=== PATIENT | male | born 2000 | race Hispanic/Latino ===

== ENCOUNTER 2020-02-27 16:03 | Emergency (ER) | payer MEDICAID, OTHER | END 2020-02-27 16:35 | disposition home or self-care (01) | LOC: EDH 16:03 | DX: S01.01XA Laceration without foreign body of scalp, initial encounter (principal); W17.89XA Other fall from one level to another, initial encounter; Y93.89 Activity, other specified; Y92.89 Other specified places as the place of occurrence of the external cause; Y99.8 Other external cause status ==

== ENCOUNTER 2021-02-23 07:29 | Emergency (ER) | payer BC ==
[~2021-02-23] VITALS: Ht 172.7 cm; Wt 120.7 kg
[2021-02-23 08:02] VITALS: BP 158/98
[2021-02-23 08:21] LABS: BASOPHILS % (AUTO) 1.1 % (0.0-5.0); EOSINOPHILS % (AUTO) 0.9 % (0.0-8.0); HEMATOCRIT 44.6 % (42-54); LYMPHOCYTES % (AUTO) 24.8 % (21.0-51.0); MEAN CORPUSCULAR HEMOGLOBIN 28.9 pg (27.0-33.0); MEAN CORPUSCULAR HGB CONC 33.4 g/dL (32.0-36.0); MEAN CORPUSCULAR VOLUME 86.4 fL (80-100); MONOCYTES % (AUTO) 14.2 % (3.0-13.0); NEUTROPHILS % (AUTO) 58.2 % (40.0-77.0); PLATELET COUNT (AUTO) 260 K/uL (130-400); RED BLOOD CELL COUNT(AUTO) 5.16 MIL/uL (4.50-6.20); RED CELL DISTRIBUTION WIDTH 12.5 % (11.0-15.5); WHITE BLOOD COUNT (AUTO) 6.5 K/uL (4.8-10.8)
[2021-02-23] MEDS ORDERED: SUCRALFATE 1 GM TABLET ONE (08:21)
[2021-02-23] MEDS ORDERED: HYOSCYAMINE SULFATE 0.125 MG TAB.SUBL SL ONE (08:21)
[2021-02-23] MEDS ORDERED: FAMOTIDINE 20MG VIAL IV ONE (08:22)
[2021-02-23] MEDS ORDERED: HYOSCYAMINE SULFATE 0.125 MG TAB.SUBL SL SCH (08:30)
[2021-02-23] MEDS ORDERED: FAMOTIDINE 20MG VIAL IV SCH (08:30)
[2021-02-23] MEDS ORDERED: SUCRALFATE 1 GM TABLET PO SCH (08:30)
[2021-02-23 08:31] LABS: CREATININE 0.9 mg/dL (0.5-1.5); POTASSIUM 3.4 mmol/L (3.5-5.1)
[2021-02-23 08:35] LABS: BILIRUBIN,TOTAL 0.8 mg/dL (0.2-1.0); TOTAL PROTEIN, SERUM 8.1 g/dL (6.0-8.3)
[2021-02-23 08:36] LABS: PROTHROMBIN TIME 10.9 SEC (9.6-11.6)
[2021-02-23 08:37] LABS: PARTIAL THROMBOPLASTIN TIME 27.1 SEC (26.3-35.5)
[2021-02-23 08:37] LABS: APPEARANCE,URINE Clear (CLEAR); BILIRUBIN,URINE Negative (NEGATIVE); COLOR,URINE Yellow (YELLOW); GLUCOSE, URINE (UA) Negative (NEGATIVE); KETONES,URINE 15 mg/dL (NEGATIVE); LEUKOCYTE ESTERASE ,URINE Negative (NEGATIVE); NITRATE,URINE Negative (NEGATIVE); OCCULT BLOOD,URINE Negative (NEGATIVE); PROTEIN,URINE Negative (NEGATIVE)
[2021-02-23] MEDS ORDERED: POTASSIUM BICARB/CIT AC 25 MEQ TABLET.EFF ONE (08:53)
[2021-02-23 08:54] LABS: B-TYPE NATRIURETIC PEPTIDE < 5 pg/mL (0-100)
[2021-02-23] MEDS ORDERED: POTASSIUM BICARB/CIT AC 25 MEQ TABLET.EFF PO SCH (09:00)
[2021-02-23 09:03] LABS: RBC,URINE 0-1 /HPF (0-1)
[2021-02-23 09:04] LABS: BACTERIA,URINE Rare /HPF (None Seen); SQUAMOUS EPITHELIAL CELL,UR None Seen /HPF (0-2); WBC,URINE None Seen /HPF (0-1)
[2021-02-23] MEDS ORDERED: FAMO-136 PO (09:21)
== END 2021-02-23 10:55 | disposition home or self-care (01) ==
LOC: EDH 07:29
DX: K21.9 Gastro-esophageal reflux disease without esophagitis (principal); R07.89 Other chest pain; R03.0 Elevated blood-pressure reading, without diagnosis of hypertension; Z79.899 Other long term (current) drug therapy; Z87.19 Personal history of other diseases of the digestive system
CPT/HCPCS: 36415; 71045; 80053; 81001; 82550; 83880; 84484; 85025; 85610; 85730; 93005; 96374; 99284; J3490

== ENCOUNTER 2021-09-28 18:43 | Emergency (ER) | payer BC ==
[~2021-09-28] VITALS: Ht 172.7 cm; Wt 117.9 kg
[~2021-09-28 18:43] MED LIST: FAMO-136 PO
[2021-09-28 19:12] LABS: EOSINOPHILS % (AUTO) 1.2 % (0.0-8.0); HEMATOCRIT 41.9 % (42-54); MEAN CORPUSCULAR HGB CONC 33.4 g/dL (32.0-36.0); MEAN CORPUSCULAR VOLUME 86.7 fL (79-99); MONOCYTES % (AUTO) 6.2 % (3.0-13.0); NEUTROPHILS % (AUTO) 57.1 % (40.0-77.0); PLATELET COUNT (AUTO) 282 K/uL (130-400); RED BLOOD CELL COUNT(AUTO) 4.83 MIL/uL (4.50-6.20); RED CELL DISTRIBUTION WIDTH 12.5 % (11.0-15.5); WHITE BLOOD COUNT (AUTO) 8.7 K/uL (4.8-10.8)
[2021-09-28 19:22] LABS: POTASSIUM 3.9 mmol/L (3.5-5.1)
[2021-09-28] MEDS ORDERED: HYDROXYZINE 25 MG TABLET ONE (19:25)
[2021-09-28] MEDS ORDERED: HYDROXYZINE 25 MG TABLET PO ONE (19:30)
[2021-09-28 19:31] LABS: ALBUMIN 4.2 g/dL (3.5-5.0); BILIRUBIN,TOTAL 0.5 mg/dL (0.2-1.0); TOTAL PROTEIN, SERUM 8.2 g/dL (6.0-8.3)
[2021-09-28 20:28] VITALS: BP 129/75
== END 2021-09-28 20:35 | disposition home or self-care (01) ==
LOC: EDH 18:43
DX: R07.89 Other chest pain (principal); F41.9 Anxiety disorder, unspecified; E66.9 Obesity, unspecified; Z68.39 Body mass index [BMI] 39.0-39.9, adult
CPT/HCPCS: 36415; 71045; 80053; 84484; 85025; 93005

== ENCOUNTER 2021-10-02 19:23 | Emergency (ER) | payer BC ==
[~2021-10-02] VITALS: Ht 172.7 cm; Wt 118.8 kg
[2021-10-02 20:00] VITALS: BP 117/54
[2021-10-02] MEDS ORDERED: GABAPENTIN 300 MG CAPSULE PO ONE (20:00)
[2021-10-02] MEDS ORDERED: DEXAMETHASONE 4 MG TAB PO ONE (20:00)
[2021-10-02] MEDS ORDERED: CYCL10TA16 PO (20:58)
[2021-10-02] MEDS ORDERED: PRED20TA3 PO (20:58)
== END 2021-10-02 21:35 | disposition home or self-care (01) ==
LOC: EDH 19:23
DX: M54.12 Radiculopathy, cervical region (principal); Z79.899 Other long term (current) drug therapy
CPT/HCPCS: 72040; 84484; 99283; J8540

== ENCOUNTER 2022-07-18 11:50 | Emergency (ER) | payer BC ==
[~2022-07-18] VITALS: Ht 170.2 cm; Wt 120.2 kg
[~2022-07-18 11:50] MED LIST changes: +CYCL10TA16 PO; +PRED20TA3 PO
[2022-07-18 12:06] VITALS: BP 146/88
[2022-07-18 12:17] LABS: BASOPHILS % (AUTO) 1.2 % (0.0-5.0); EOSINOPHILS % (AUTO) 0.9 % (0.0-8.0); MEAN CORPUSCULAR HEMOGLOBIN 28.8 pg (27.0-33.0); MEAN CORPUSCULAR HGB CONC 33.6 g/dL (32.0-36.0); MEAN CORPUSCULAR VOLUME 85.9 fL (79-99); MONOCYTES % (AUTO) 6.4 % (3.0-13.0); PLATELET COUNT (AUTO) 279 K/uL (130-400); RED BLOOD CELL COUNT(AUTO) 5.24 MIL/uL (4.50-6.20); RED CELL DISTRIBUTION WIDTH 12.3 % (11.0-15.5); WHITE BLOOD COUNT (AUTO) 8.4 K/uL (4.8-10.8)
[2022-07-18] MEDS ORDERED: IBUPROFEN 600 MG TABLET PO ONE (12:30)
[2022-07-18 12:39] LABS: ALBUMIN 4.2 g/dL (3.5-5.0); CREATININE 0.9 mg/dL (0.5-1.5); POTASSIUM 3.9 mmol/L (3.5-5.1); TOTAL PROTEIN, SERUM 8.2 g/dL (6.0-8.3)
[2022-07-18 14:41] LABS: APPEARANCE,URINE CLEAR (CLEAR); BILIRUBIN,URINE NEGATIVE (NEGATIVE); COLOR,URINE YELLOW (YELLOW); GLUCOSE, URINE (UA) NEGATIVE (NEGATIVE); KETONES,URINE NEGATIVE (NEGATIVE); LEUKOCYTE ESTERASE ,URINE NEGATIVE Leu/uL (NEGATIVE); NITRATE,URINE NEGATIVE (NEGATIVE); OCCULT BLOOD,URINE NEGATIVE (NEGATIVE); PH,URINE 5.5 (5.0-8.0); PROTEIN,URINE 20 mg/dL (NEGATIVE); UROBILINOGEN,URINE 0.2 mg/dL (0.2-1.0)
[2022-07-18 14:48] LABS: BACTERIA,URINE RARE /HPF (None Seen); MUCUS,URINE MOD LPF (None Seen)
[2022-07-18 14:49] LABS: AMPHET/METH SCREEN,URINE NEGATIVE (NEGATIVE); BARBITURATE SCREEN, URINE NEGATIVE (NEGATIVE); BENZODIAZEPINES SCREEN,URINE NEGATIVE (NEGATIVE); CANNABINOID SCREEN,URINE NEGATIVE (NEGATIVE); COCAINE SCREEN,URINE NEGATIVE (NEGATIVE); OPIATE SCREEN,URINE NEGATIVE (NEGATIVE); PHENCYCLIDINE SCREEN,URINE NEGATIVE (NEGATIVE)
[2022-07-18] MEDS ORDERED: CYCL10TA16 PO (14:59)
[2022-07-18] MEDS ORDERED: IBUP-2070 PO (14:59)
== END 2022-07-18 15:57 | disposition home or self-care (01) ==
LOC: EDH 11:50
DX: G43.909 Migraine, unspecified, not intractable, without status migrainosus (principal); R07.89 Other chest pain; M94.0 Chondrocostal junction syndrome [Tietze]
CPT/HCPCS: 36415; 71045; 80053; 80305; 81001; 84484; 85025; 93005

== ENCOUNTER 2022-10-26 04:43 | Emergency (ER) | payer BC ==
[~2022-10-26] VITALS: Ht 172.7 cm; Wt 122.5 kg
[~2022-10-26 04:43] MED LIST changes: +IBUP-2070 PO
[2022-10-26 04:46] VITALS: BP 198/96
== END 2022-10-26 05:19 | disposition home or self-care (01) ==
LOC: EDH 04:43
DX: F12.929 Cannabis use, unspecified with intoxication, unspecified (principal); E66.9 Obesity, unspecified; Z79.52 Long term (current) use of systemic steroids; Z68.41 Body mass index [BMI] 40.0-44.9, adult
CPT/HCPCS: 99281

== ENCOUNTER 2022-12-21 16:16 | Emergency (ER) | payer BC ==
[~2022-12-21] VITALS: Ht 172.7 cm; Wt 117.9 kg
[2022-12-21 16:18] VITALS: BP 163/79; PULSE 86; RESP 20
[2022-12-21] MEDS ORDERED: HYDR25TA PO (18:06)
[2022-12-21] MEDS ORDERED: HYDROCHLOROTHIAZIDE 25 MG TABLET PO ONE (18:30)
== END 2022-12-21 18:18 | disposition home or self-care (01) ==
LOC: EDH 16:16
DX: R51.9 Headache, unspecified (principal); I10 Essential (primary) hypertension; E66.01 Morbid (severe) obesity due to excess calories; Z68.39 Body mass index [BMI] 39.0-39.9, adult; Z79.899 Other long term (current) drug therapy; Z98.890 Other specified postprocedural states
CPT/HCPCS: 70450